=== PATIENT | female | born 1960 | race African-American/Black ===

== ENCOUNTER 2018-05-04 08:11 | Emergency (ER) | payer OTHER ==
[~2018-05-04] VITALS: Ht 170.2 cm; Wt 84.5 kg
[2018-05-04] MEDS ORDERED: OXYC-43 PO (08:30)
[2018-05-04] MEDS ORDERED: CYAN50008 PO (08:30)
[2018-05-04] MEDS ORDERED: MET750 PO (08:30)
[2018-05-04] MEDS ORDERED: LOSA50TA64 PO (08:30)
[2018-05-04] MEDS ORDERED: FLUO-191 PO (08:30)
[2018-05-04] MEDS ORDERED: TOPI25CA PO (08:30)
[2018-05-04] MEDS ORDERED: GABA-529 PO (08:30)
[2018-05-04] MEDS ORDERED: CHOL50004 PO (08:30)
[2018-05-04 09:42] VITALS: BP 124/73
== END 2018-05-04 09:43 | disposition home or self-care (01) ==
LOC: EMS 08:12
DX: J32.9 Chronic sinusitis, unspecified (principal); I51.9 Heart disease, unspecified; E78.00 Pure hypercholesterolemia, unspecified; Z88.0 Allergy status to penicillin; Z88.8 Allergy status to other drugs, medicaments and biological substances; Z91.018 Allergy to other foods

== ENCOUNTER 2018-06-15 12:29 | Emergency (ER) | payer OTHER ==
[~2018-06-15] VITALS: Ht 170.2 cm; Wt 86.4 kg
[~2018-06-15 12:29] MED LIST: CHOL50004 PO; CYAN50008 PO; FLUO-191 PO; GABA-529 PO; LOSA50TA64 PO; MET750 PO; OXYC-43 PO; TOPI25CA PO
[2018-06-15 13:05] VITALS: BP 145/69
== END 2018-06-15 13:28 | disposition home or self-care (01) ==
LOC: EMS 12:31
DX: I10 Essential (primary) hypertension (principal); E78.00 Pure hypercholesterolemia, unspecified; Z79.899 Other long term (current) drug therapy; Z88.0 Allergy status to penicillin; Z91.018 Allergy to other foods

== ENCOUNTER 2019-01-14 13:47 | Emergency (ER) | payer MEDICARE, OTHER ==
[~2019-01-14] VITALS: Ht 170.2 cm; Wt 89.1 kg
[~2019-01-14 13:47] MED LIST changes: -MET750 PO; +METH750T4 PO
[2019-01-14 16:02] LABS: BASOPHILS % (AUTO) 1.1 % (0.0-2.0); EOSINOPHILS % (AUTO) 0.5 % (1.0-6.0); HEMOGLOBIN 13.4 g/dL (12.0-16.0); LYMPHOCYTES % (AUTO) 53.8 % (22.0-44.0); MEAN CORPUSCULAR HEMOGLOBIN 30.8 pg (26.0-34.0); MEAN CORPUSCULAR HGB CONC 35.2 G/dL (31.0-37.0); MEAN CORPUSCULAR VOLUME 88 fL (80-100); MONOCYTES # (AUTO) 0.3 K/uL (0.1-1.0); MONOCYTES % (AUTO) 5.4 % (2.0-9.0); NEUTROPHILS # (AUTO) 2.2 K/uL (1.8-7.7); NEUTROPHILS % (AUTO) 39.2 % (40.0-70.0); PLATELET COUNT (AUTO) 241 K/uL (150-450); RED BLOOD CELL COUNT(AUTO) 4.34 MIL/uL (4.00-5.20); RED CELL DISTRIBUTION WIDTH 13.5 % (11.5-14.5)
[2019-01-14 16:04] LABS: ANION GAP 10 mmol/L (8-16); CALCIUM, TOTAL 9.1 mg/dL (8.8-10.5); CARBON DIOXIDE 26 mmol/L (22-29); CHLORIDE 105 mmol/L (98-107); CREATININE 0.92 mg/dL (0.60-1.30); GLOMERULAR FILTR. RATE CALC > 60 mL/min (>60); GLUCOSE,RANDOM 86 mg/dL (70-110); POTASSIUM 3.9 mmol/L (3.5-5.1); SODIUM SERUM 141 mmol/L (136-145); UREA NITROGEN, BLOOD 14 mg/dL (7-18)
[2019-01-14 16:31] LABS: ALANINE AMINOTRANSFERASE 41 U/L (12-78); ALBUMIN 4.4 g/dL (3.4-5.0); ALKALINE PHOSPHATASE 118 U/L (46-116); ASPARTATE AMINOTRANSFERASE 35 U/L (15-37); BILIRUBIN,TOTAL 0.8 mg/dL (0.1-1.0); CREATINE KINASE, TOTAL ONLY 290 U/L (26-192); TOTAL PROTEIN, SERUM 8.2 g/dL (6.4-8.2)
[2019-01-14] MEDS ORDERED: NITROGLYCERIN 2% (1 GM=INCH) PACKET TP ONE (16:45)
[2019-01-14] MEDS ORDERED: ASPIRIN 325 MG EC TABLET PO ONE (16:45)
[2019-01-14 16:52] LABS: B-TYPE NATRIURETIC PEPTIDE 30 pg/mL (0-100)
[2019-01-14 17:34] LABS: PLATELET MORPHOLOGY COMMENT LARGE PLTS PRESENT
[2019-01-14 17:46] LABS: PROTHROMBIN TIME 10.5 SEC (9.4-11.6)
[2019-01-14 18:12] VITALS: BP 136/70
[2019-01-14] MEDS ORDERED: ACETAMINOPHEN 325 MG TABLET PO PRN ×2 (18:15→20:45)
[2019-01-14] MEDS ORDERED: ONDANSETRON HCL 4 MG/2 ML VIAL IVP PRN ×2 (18:15→20:45)
[2019-01-14] MEDS ORDERED: 0.9% SODIUM CHLORIDE 10 ML SYRINGE IVP PRN (18:15)
[2019-01-14] MEDS ORDERED: MORPHINE SULFATE 2 MG/ML SYRINGE IVP PRN (20:45)
[2019-01-14] MEDS ORDERED: MAGNESIUM HYDROXIDE SUSPENSION 30 ML UDCUP PO PRN (20:45)
[2019-01-14] MEDS ORDERED: BISACODYL 10 MG RECTAL RECTAL SUPPOSITORY PR PRN (20:45)
[2019-01-14] MEDS ORDERED: ZOLPIDEM TARTRATE 5 MG TABLET PO PRN (20:45)
[2019-01-14] MEDS ORDERED: HYDROCODONE/ACETAMINOPHEN 5-325 MG TABLET PO PRN (20:45)
[2019-01-14] MEDS ORDERED: DOCUSATE SODIUM 100 MG CAPSULE PO SCH (21:00)
[2019-01-15] MEDS ORDERED: HEPARIN SODIUM,PORCINE 5,000 UNITS/ML VIAL SQ SCH
[2019-01-15] MEDS ORDERED: NITROGLYCERIN 2% (1 GM=INCH) PACKET TP SCH
[2019-01-15] MEDS ORDERED: ASPIRIN 81 MG CHEWABLE TABLET PO SCH (09:00)
[2019-01-15] MEDS ORDERED: GABAPENTIN 100 MG CAPSULE PO SCH (09:00)
[2019-01-15] MEDS ORDERED: CHOLECALCIFEROL (VIT D3) 5,000 UNITS CAPSULE PO SCH ×2 (09:00)
[2019-01-15] MEDS ORDERED: PANTOPRAZOLE SODIUM 40 MG DR TABLET PO SCH (09:00)
[2019-01-15] MEDS ORDERED: LOSARTAN POTASSIUM 50 MG TABLET PO SCH (09:00)
[2019-01-15] MEDS ORDERED: FLUoxetine HCL 20 MG CAPSULE PO SCH ×2 (09:00)
== END 2019-01-14 19:40 | disposition left against medical advice (07) ==
LOC: EMS 13:52 → 5S 18:19 → UNDOADMIN 18:19 → EMS 19:40
DX: I10 Essential (primary) hypertension (principal); Z88.0 Allergy status to penicillin; Z88.8 Allergy status to other drugs, medicaments and biological substances; Z91.018 Allergy to other foods
CPT/HCPCS: 93005